=== PATIENT | female | born 1975 | race Caucasian/White ===

== ENCOUNTER 2018-03-11 14:06 | Emergency (ER) | payer OTHER ==
[~2018-03-11] VITALS: Ht 162.6 cm; Wt 108.0 kg
[~2018-03-11 14:06] MED LIST: ATEN1TAB73 PO; DARV PO; DIFL500T PO; SULF1TAB47 PO
[2018-03-11 14:11] VITALS: BP 138/63; PULSE 69; RESP 16; TEMP 98.6; O2SAT 95
[2018-03-11] MEDS ORDERED: METO100T PO (14:19)
[2018-03-11] MEDS ORDERED: PERC5TAB12 PO (14:19)
[2018-03-11] MEDS ORDERED: DIFL150T PO (14:47)
[2018-03-11] MEDS ORDERED: CLIN300C5 PO (14:47)
--- NOTE | 2018-03-11 14:47 | PD ---
HPI Chief Complaint: Oral / Dental Pain or Problem Time Seen by Provider: 14:35 Travel History International Travel<30 days: No Contact w/Intl Traveler<30days: No Traveled to known affect area: No History of Present Illness HPI This is a 42-year-old female here with dental pain in the left upper jaw 1 month. Denies fever chills. She reports she has had a an abscess at this location previously. Symptom severity is moderate. Aggravated by hot, cold liquids and chewing. PFSH Past Medical History Cardiac Catheterization: Yes Diminished Hearing: No Hypertension: Yes Tetanus Vaccination: Unknown Influenza Vaccination: No ?: Unknown Tubal Ligation: Yes Past Surgical History Cholecystectomy: Yes Genitourinary Surgery: Yes (BLADDER SLING X 4 ) Hysterectomy: Yes Other Surgery: Yes (RIGHT BREAST LUMPECTOMY) Social History Alcohol Use: No Tobacco Use: Yes (/2 PPD) Substance Use: No Allergies-Medications (Allergen,Severity, Reaction): Coded Allergies: acetaminophen (Unverified Allergy, Mild, 03/11/18) amoxicillin (Unverified Allergy, Mild, 03/11/18) clavulanic acid (Unverified Allergy, Mild, 03/11/18) oxycodone (Unverified Allergy, Mild, 03/11/18) Reported Meds & Prescriptions Reported Meds & Active Scripts Active Diflucan (Fluconazole) 150 Mg Tab 150 Mg PO ONCE Clindamycin (Clindamycin HCl) 300 Mg Cap 300 Mg PO Q6H 7 Days Reported Percocet (Oxycodone-Acetaminophen) 5-325 mg Tab 1 Tab PO Q6H PRN Metoprolol Tartrate 100 Mg Tab 100 Mg PO BID Review of Systems Except as stated in HPI: all other systems reviewed are Neg General / Constitutional: No: Fever Eyes: No: Visual changes HENT: Positive: Dental Difficulties Cardiovascular: No: Chest Pain or Discomfort Respiratory: No: Shortness of Breath Gastrointestinal: No: Abdominal Pain Physical Exam Narrative GENERAL: Alert and well-appearing 42-year-old female. SKIN: Warm and dry. HEAD: Normocephalic. EYES: No scleral icterus. No injection or drainage. MOUTH: Widespread dental decay. Gum erythema and swelling around tooth #14. No swelling to the floor the mouth. Uvula is midline. Airways patent. NECK: Supple, trachea midline. No lymphadenopathy. CARDIOVASCULAR: Regular rate and rhythm without murmurs, gallops, or rubs. RESPIRATORY: Breath sounds equal bilaterally. No accessory muscle use. GASTROINTESTINAL: Abdomen soft, non-tender, nondistended. Data Data Last Documented VS Vital Signs Date Time Temp Pulse Resp B/P (MAP) Pulse Ox O2 Delivery O2 Flow Rate FiO2 03/11/18 14:11 98.6 69 16 138/63 (88) 95 MDM Medical Decision Making Medical Screen Exam Complete: Yes Emergency Medical Condition: Yes Differential Diagnosis Dental abscess, dental caries, dentalgia Narrative Course 42 Y/O female with dental abscess. She is nontoxic appearing. She will be treated with clindamycin. Upon discharge patient is requesting prescription for Diflucan for yeast infection after antibiotics. She has taken this in the past without complication. Diagnosis Primary Impression: Dental abscess Referrals: Dentist Additional Instructions: Medication as directed. Scripts Fluconazole (Diflucan) 150 Mg Tab 150 MG PO ONCE for Infection, #1 TAB 0 Refills Prov: Estrella Hernandez 03/11/18 Clindamycin (Clindamycin) 300 Mg Cap 300 MG PO Q6H for Infection for 7 Days, #28 CAP 0 Refills Prov: Estrella Hernandez 03/11/18 Disposition: 01 DISCHARGE HOME Condition: Stable Estrella Hernandez Mar 11, 2018 14:47
== END 2018-03-11 14:56 | disposition home or self-care (01) ==
LOC: PHEFT 14:06
DX: K04.7 Periapical abscess without sinus (principal); K02.9 Dental caries, unspecified; I10 Essential (primary) hypertension; F17.200 Nicotine dependence, unspecified, uncomplicated; Z88.6 Allergy status to analgesic agent; Z88.8 Allergy status to other drugs, medicaments and biological substances; Z79.899 Other long term (current) drug therapy; Z88.5 Allergy status to narcotic agent
CPT/HCPCS: 99283